=== PATIENT | female | born 1995 | race Caucasian/White ===

== ENCOUNTER 2017-11-04 15:18 | Emergency (ER) | payer BC ==
[2017-11-04] MEDS ORDERED: 0.9 % SODIUM CHLORIDE 1,000 ML BAG IV ONE (15:32)
[2017-11-04] MEDS ORDERED: KETOROLAC 30 MG/ML VIAL IVP ONE (15:33)
--- NOTE | 2017-11-04 15:41 | Emergency Department Record ---
History of Present Illness - General Chief Complaint: Abdominal Pain Stated Complaint: RT ABDOMINAL PAIN/SWELLING Time Seen by Provider: 11/04/17 15:24 Source: Patient Mode of Arrival: Ambulatory Limitations: No limitations - History of Present Illness Initial Comments: 22 yo female presents with intermittent right lower abdominal pain. The pain started about one week ago. The pain comes and goes on the right in the lower abdomen. She had a negative HCG on 11/01 and she had an outpatient pelvic US that demonstrated a 4.3 x 3.0cm simple right ovarian cyst probable dominant follicle. The pain has continued. She does have an OBGYN as well. No fevers, diarrhea. She has had some loss of appetite. She has developed a cough and congestion the last 2 days as well. She works in a daycare. MD Complaint: Abdominal pain Onset/Timin -: Days(s) Location: RUQ, RLQ Radiation: None Migration to: No migration Severity scale (1-10): 10 Quality: Sharp Consistency: Constant Improves With: Nothing Worsens With: Nothing Associated Symptoms: Anorexia, Nausea - Related Data LMP (females 10-50): Current Previous Rx's Medication Instructions Recorded Azithromycin [Zithromax] 250 mg PO DAILY #4 tablet 11/04/17 Hydrocodone/APAP 5/325Mg [Nahma 1 each PO Q6H #12 tab 11/04/17 5Mg/325Mg] Metronidazole [Flagyl] 500 mg PO BID #14 tablet 11/04/17 Ondansetron [Zofran Odt] 4 mg PO Q8H #15 tab.rapdis 11/04/17 Allergies Allergy/AdvReac Type Severity Reaction Status Date / Time amoxicillin Allergy Mild nausea Unverified 01/22/17 11:16 Travel Screening - Travel/Exposure Within Last 30 Days Have you traveled within the last 30 days?: No Review of Systems Constitutional: Denies: Chills, Fever, Malaise, Weakness Eyes: Denies: Eye discharge ENT: Reports: Congestion. Denies: Throat pain Respiratory: Reports: Cough. Denies: Dyspnea, Hemoptysis, Stridor, Wheezes Cardiovascular: Denies: Chest pain, Syncope Endocrine: Denies: Fatigue Gastrointestinal: Reports: Abdominal pain, Nausea. Denies: Diarrhea Genitourinary: Denies: Discharge, Dysuria, Incontinence, Urgency Musculoskeletal: Reports: Back pain. Denies: Arthralgia, Joint swelling, Myalgia, Neck pain Skin: Denies: Bruising, Change in color, Rash Neurological: Denies: Headache, Numbness, Weakness Psychiatric: Denies: Anxiety Hematological/Lymphatic: Denies: Easy bleeding, Easy bruising Past Medical History - SOCIAL HISTORY Smoking Status: Never smoker Alcohol Use: Rare Drug Use: None - RESPIRATORY Hx Respiratory Disorders: No - CARDIOVASCULAR Hx Cardio Disorders: No - NEURO Hx Neuro Disorders: No - GI Hx GI Disorders: No - Hx Genitourinary Disorders: No - ENDOCRINE Hx Endocrine Disorders: No - MUSCULOSKELETAL Hx Musculoskeletal Disorders: No - PSYCH Hx Psych Problems: No - HEMATOLOGY/ONCOLOGY Hx Hematology/Oncology Disorders: No Family Medical History Any Significant Family History?: No Physical Exam - General General Appearance: Alert, Oriented x3, Cooperative, No acute distress Limitations: No limitations - Head Head exam: Atraumatic, Normal inspection - Eye Eye exam: Normal appearance. negative: Conjunctival injection, Scleral icterus - ENT ENT exam: Normal exam, Mucous membranes moist. negative: Normal orophraynx Ear exam: Normal external inspection Nasal Exam: Normal inspection Mouth exam: Normal external inspection Teeth exam: Normal inspection Throat exam: Normal inspection - Neck Neck exam: Normal inspection, Full ROM. negative: Tenderness - Respiratory Respiratory exam: Normal lung sounds bilaterally, Other (normal work of breathing). negative: Respiratory distress, Rhonchi, Stridor, Wheezes - Cardiovascular Cardiovascular Exam: Regular rate, Normal rhythm, Normal heart sounds - GI/Abdominal GI/Abdominal exam: Soft, Tenderness. negative: Distended, Guarding, Hernia, Rebound, Rigid - Rectal Rectal exam: Deferred - Extremities Extremities exam: Normal inspection. negative: Calf tenderness, Normal capillary refill, Pedal edema, Tenderness - Back Back exam: Reports: Normal inspection. Denies: CVA tenderness (R), CVA tenderness (L), Full ROM - Neurological Neurological exam: Alert, Oriented X3 - Psychiatric Psychiatric exam: Normal affect, Normal mood - Skin Skin exam: Dry, Intact, Normal color, Warm Course Vital Signs 11/04/17 15:27 Pulse Rate 120 H Respiratory 20 Rate Blood Pressure 141/97 Pulse Ox 96 - Reevaluation(s) Reevaluation #1: 11/04/17 17:20 The labs were reviewed. No acute changes on the CBC or CMP The UA is negative for infection The HCG is negative The wet prep is positive for clue cells Flagyl ordered 11/04/17 17:[address] scan 11/04/17 19:[address] scan was reviewed. Follicular changes in the ovary. No acute intraabdominal process. Left sided lingular pneumonia. The patient has had about 2 days of cough. Zithromax was provided as well Medical Decision Making - Lab Data Result diagrams: 11/04/17 15:57 11/04/17 15:57 Disposition Disposition: Discharge Clinical Impression: Abdominal pain, Ovarian cyst, Bacterial vaginosis, Pneumonia Disposition: Home, Self-Care Condition: (1) Good Instructions: Bacterial Vaginosis (ED), Ovarian Cyst (ED), Abdominal Pain (ED) , Pneumonia (ED) Additional Instructions: Call your OBGYN for close follow up your symptoms Return to the ED if you have fever, worse, vomiting or any new concerns Prescriptions: Azithromycin [Zithromax] 250 mg PO DAILY #4 tablet Hydrocodone/APAP 5/325Mg [Nahma 5Mg/325Mg] 1 each PO Q6H #12 tab Metronidazole [Flagyl] 500 mg PO BID #14 tablet Ondansetron [Zofran Odt] 4 mg PO Q8H #15 tab.rapdis Forms: Patient Portal Access Time of Disposition: 19:24 Quality - Quality Measures Quality Measures: N/A - Blood Pressure Screening Does Patient Have Any of the Following: No Blood Pressure Classification: Pre-Hypertensive BP Reading Systolic Measurement: 144 Diastolic Measurement: 88 Screening for High Blood Pressure: < Pre-Hypertensive BP, F/U Documented > [ [id number]] Pre-Hypertensive Follow-up Interventions: Referral to alternative/primary care provider.
[2017-11-04 16:16] LABS: URINE APPEARANCE CLEAR; URINE BILIRUBIN NEGATIVE (NEGATIVE); URINE BLOOD TRACE-I (NEGATIVE); URINE COLOR YELLOW; URINE GLUCOSE (UA) NEGATIVE (NEGATIVE); URINE KETONE NEGATIVE (NEGATIVE); URINE LEUKOCYTE ESTERASE NEGATIVE (NEGATIVE); URINE NITRITE NEGATIVE (NEGATIVE); URINE PROTEIN NEGATIVE (NEGATIVE); URINE UROBILINOGEN 0.2 E.U./dL (0.20 - 1.00)
[2017-11-04 16:17] LABS: BASO % 0.3 % (0-6); EOS % 1.2 % (0-6); GRAN % 46.7 % (47-80); HEMATOCRIT 42.3 % (35.0-47.0); LYMPH % 40.9 % (16-45); MEAN CELL VOLUME 85.8 fl (81-97); MEAN CORPUSCULAR HEMOGLOBIN 28.4 pg (27-33); MEAN CORPUSCULAR HGB CONC 33.1 g/dl (32-36); MEAN PLATELET VOLUME 9.4 fl (7.4-10.4); MONO % 10.9 % (0-9); PLATELET COUNT 237 K/uL (130-400); RED BLOOD COUNT 4.93 M/uL (3.80-5.40); WHITE BLOOD COUNT W/O DIFF 6.7 K/uL (4.2-12.2)
[2017-11-04 16:26] LABS: BLOOD UREA NITROGEN 14 mg/dL (6-20); CREATININE 0.7 mg/dL (0.5-0.9); EST GLOMERULAR FILTRATION RATE > 60 mL/min
[2017-11-04 16:27] LABS: TOTAL PROTEIN 7.8 g/dL (6.6-8.7); URINE EPITHELIAL CELLS 0 - 2 (FEW); URINE MUCUS LIGHT; URINE WBC 0 - 2 (0-2/hpf)
[2017-11-04 16:28] LABS: INFLUENZA A NEGATIVE (NEGATIVE); URINE AMORPHOUS SEDIMENT 1+
[2017-11-04 16:29] LABS: GLUCOSE,RANDOM 85 mg/dL (74-109); INFLUENZA B NEGATIVE (NEGATIVE)
[2017-11-04 16:31] LABS: ALT/SGPT 19 U/L (<33)
[2017-11-04 16:32] LABS: ALB/GLOB RATIO 1.2 (1.1-1.8); ALBUMIN 4.3 g/dL (4.0-5.0); ALKALINE PHOSPHATASE 73 U/L (35-104); AST/SGOT 17 U/L (10.0-35.0)
[2017-11-04 16:54] LABS: WET PREP CLUE CELLS (NONE SEEN)
[2017-11-04] MEDS ORDERED: METRONIDAZOLE 250 MG TABLET PO ONE (17:20)
[2017-11-04] MEDS ORDERED: AZITHROMYCIN 500 MG TABLET PO ONE (19:28)
--- NOTE | 2017-11-05 08:42 | CT SCAN REPORT ---
EXAM: CT OF THE ABDOMEN AND PELVIS HISTORY: RIGHT SIDED PAIN. TECHNIQUE: CT of the abdomen and pelvis was performed following IV administration of 100 ml of Omnipaque 300 contrast. Oral contrast was also utilized. Comparison: Prior CT from 09/22/12. FINDINGS: Limited evaluation of the lung bases shows nodular opacities in the lingula consistent with pneumonia. Recommend follow-up until resolution. The osseous structures are grossly intact. Evaluation of the liver, spleen, adrenal glands, pancreas, and kidneys is unremarkable. The gallbladder is present. There is no evidence for bowel obstruction. Normal appendix. No free air or free fluid. Probable follicular change to the ovaries bilaterally with what is likely a dominant follicle of the right ovary measuring 2.2 x 1.9 cm. No abdominal or pelvic adenopathy. IMPRESSION: 1. FINDINGS CONCERNING FOR LINGULAR PNEUMONIA. RECOMMEND FOLLOW-UP TO INSURE RESOLUTION. 2. PROBABLE FOLLICULAR CHANGE OF THE OVARIES WITH A PROBABLE DOMINANT FOLLICLE OF THE RIGHT OVARY. CORRELATE WITH PHASE OF MENSTRUAL CYCLE. JOB NUMBER: [id number] [facility]
== END 2017-11-04 19:48 | disposition home or self-care (01) ==
LOC: ER 15:18
DX: J18.9 Pneumonia, unspecified organism (principal); N76.0 Acute vaginitis; R11.0 Nausea; N83.201 Unspecified ovarian cyst, right side
CPT/HCPCS: 99284 ×2; 96374; 85025; 80053; 81001; 84703; 87400; 74177; Q0111; Q9967; J1885; 87210; J7030